=== PATIENT | male | born 1965 | race Caucasian/White ===

== ENCOUNTER 2017-07-24 06:54 | Day surgery (SDC) | payer OTHER ==
[~2017-07-24 06:54] MED LIST: Lactated Ringers 1,000 ML IV SCH
[2017-07-24] MEDS ORDERED: Propofol 200 MG/20 ML SDV IV ONE (08:00)
[2017-07-24] MEDS ORDERED: Midazolam 1 MG/ML 2 ML SDV IV ONE (08:00)
--- NOTE | 2017-07-24 08:44 | PCM.OPNOTE ---
- General Post-Op/Procedure Note Date of Surgery/Procedure: 07/24/17 Operative Procedure(s): c scope with bx Findings: sigmoid diverticulosis transverse colon polyp descending colon polyp x3 rectal polyp x2 Pre Op Diagnosis: hx of diverticulosis Post-Op Diagnosis: sigmoid diverticulosis. transverse colon polyp. descending colon polyp x3. rectal polyp x2 Anesthesia Technique: MAC Primary Surgeon: Guru Crawford Anesthesia Provider: Philip Correa Pathology: transverse colon polyp descending colon polyp x3 rectal polyp x2 Complications: None Condition: Good Free Text/Narrative:: see dictation
--- NOTE | 2017-07-24 13:00 | OR ---
DATE OF OPERATION: 07/24/2017 SURGEON: Guru Crawford MD PROCEDURE PERFORMED: Colonoscope with cold forceps biopsy. PREOPERATIVE DIAGNOSIS: History of diverticulosis. POSTOPERATIVE DIAGNOSIS: Transverse colon polyp, descending colon polyp x3, rectal polyp x2, and sigmoid diverticulosis. INDICATIONS FOR PROCEDURE: This is a 52-year-old white male who is referred with a recent attack of diverticulosis. He was offered and accepted a colonoscopy as part of a workup as he has never had a colonoscopy in the past. DESCRIPTION OF PROCEDURE: After an excellent IV sedation was administered, digital rectal exam was performed. No marked abnormality was noted. The flexible colonoscope was inserted and advanced without difficulty to the cecum. The prep was excellent. The following findings were noted. Ascending colon, unremarkable. Transverse colon; at the proximal transverse colon, a small polyp biopsied with cold biopsy forceps and sent for permanent. Descending colon, three small polypoid lesions, biopsied with cold biopsy forceps and sent for permanent. Sigmoid, occasional diverticulosis. Rectum, just above the anal verge, two polyps biopsied and submitted in one container. The colon was deflated as the scope was removed. The patient tolerated the procedure well, and was taken to recovery room in good condition. /[id number] /NADYA
== END 2017-07-24 09:51 | disposition home or self-care (01) ==
LOC: FB.SDS 06:54
PROVIDERS: ATTEND Surgery
DX: D12.3 Benign neoplasm of transverse colon (principal); D12.4 Benign neoplasm of descending colon; K62.1 Rectal polyp; K57.30 Diverticulosis of large intestine without perforation or abscess without bleeding; Z79.899 Other long term (current) drug therapy
CPT/HCPCS: 45380; 88305; J2250; J2704; J7120

== ENCOUNTER 2018-05-20 17:07 | Inpatient (IN) | payer OTHER ==
[2018-05-20] MEDS ORDERED: Sodium Chloride 0.9% 10 ML Syringe FLUSH PRN (17:30)
[2018-05-20] MEDS ORDERED: Ciprofloxacin in D5W 400 MG in Premix Bag 1 BAG IV SCH ×2 (17:30)
[2018-05-20] MEDS ORDERED: Ketorolac 30 MG/ML SDV IM PRN (17:30)
[2018-05-20] MEDS: Sodium Chloride 0.9% 1,000 ML IV SCH (19:00)
[2018-05-20] MEDS: metroNIDAZOLE/Normal Saline 500 MG in Premix Bag 1 BAG IV SCH (19:31)
[2018-05-20] MEDS: Piperacillin/Tazobactam 3.375 GM in Sodium Chloride 0.9% 50 ML IV SCH (20:36)
--- NOTE | 2018-05-21 01:27 | HP ---
ADMISSION DATE: 05/20/2018 CHIEF COMPLAINT: Abdominal pain. HISTORY OF PRESENT ILLNESS: Lambert is a 53-year-old estes from [facility] with a history of prior episodes of diverticulitis treated as an outpatient. He states that he has been having abdominal pain for approximately 10 days by the time he went into the clinic on May [address] Jonathan Huizar. At that time, he was started on Cipro, which he has continued for the past 5 days. His symptoms also included low-grade fever, but chills and sweats. No high fever, and pain in the lower abdomen that radiated from the left lower quadrant to the suprapubic area. He states that today he has felt improved, but he had a CT scan of his abdomen today, which showed sigmoid diverticulitis with localized perforation. For that reason, Dr. Huizar asked him to come to the hospital where he is now examined. He has been eating regularly and he ate essentially normal meals yesterday. Today, he did not eat because of his busy schedule. PAST MEDICAL HISTORY: No inpatient treatments for diverticulitis. He has had colonoscopy within the last couple of years, which showed a few diverticula. He is also status post ACL repair on the right knee and arthroscopic surgery on the left knee. He has no other medical problems, but has had episodes of back pain with sciatica related to an old pelvis fracture several years ago. MEDICATIONS: Cipro 400 mg b.i.d. ALLERGIES: None. HABITS: Nonsmoker. Occasional alcohol. Two caffeinated sodas per day. FAMILY AND SOCIAL HISTORY: The patient states his father had prostate cancer. He is after being for 17 years. He has 3 children, the oldest in college. He [place] [facility] and lives [place] the farm by himself. REVIEW OF SYSTEMS: GENERAL: No seizure, syncope, or recent significant weight change. SKIN: Negative for rash. HEENT: No recent changes in hearing or vision. No sore throat or URI. No cough or purulent sputum. CARDIAC: No chest pain or palpitations. GASTROINTESTINAL: No upper abdominal pain, nausea, vomiting, or diarrhea. GENITOURINARY: He has had a pressure sensation on the bladder, but no hematuria or dysuria. MUSCULOSKELETAL: He does report he has had intermittent low back pain with sciatica and he describes anterior pelvic bone and pubic bone area pain associated with this and confusing him as to the origin of his lower abdominal pubic area pain. He also has had recent joint pain since going on the Cipro, that includes stiffness and soreness in his neck that progressed to headache, and some achiness in his shoulders and hips. He says when the Cipro seems to wear off around 10-12 hours the headache goes away and it starts up again an hour after the Cipro along with his other joint pains. LABORATORY DATA: White count 4400, hemoglobin 14.2. Electrolytes normal. Creatinine 1.1. AST 65, ALT 121, alkaline phosphatase 143. CRP 15.7. DIAGNOSTIC DATA: CT scan of the abdomen shows sigmoid diverticulitis with localized perforation and no intraabdominal free air. ASSESSMENT: 1. Acute diverticulitis with microperforation. 2. History of previous diverticulitis and diverticulosis. 3. Neck pain and arthralgias secondary to Cipro. 4. History of back pain and sciatica and symphysis pubis area pain post old pubic fracture. 5. Elevated liver enzymes, cause unclear. PLAN: Because of his side effects of Cipro, we will discontinue that and start him on Zosyn 3.375 g every 6 hours IV. He is also started on metronidazole IV, which we may be able to stop after the first couple of doses. I will also consult with Dr. Crawford for surgical evaluation. Allow him to have a full liquid diet for tonight. I anticipate approximately a 48-72 hour hospital stay. /[id number] АННА/NADYA
[2018-05-21] MEDS: metroNIDAZOLE/Normal Saline 500 MG in Premix Bag 1 BAG IV SCH ×2 (02:23→10:44)
[2018-05-21] MEDS: Piperacillin/Tazobactam 3.375 GM in Sodium Chloride 0.9% 50 ML IV SCH ×4 (03:28→19:58)
[2018-05-21] MEDS: Sodium Chloride 0.9% 1,000 ML IV SCH ×3 (03:33→22:55)
--- NOTE | 2018-05-21 08:50 | PCM.CONS ---
H&P History of Present Illness - General Date of Service: 05/21/18 Admit Problem/Dx: Admission Diagnosis/Problem Admission Diagnosis/Problem Diverticulitis Source of Information: Patient, Other - History of Present Illness Initial Comments - Free Text/Narative: 53 yo wm with a hx of diverticulitis in the past. He developed some abd pain last week. This was a dull ache in the lower abd. He states it felt like a bladder infection. He was seen in the clinic and apparently started on Cipro. His sx persisted but he did feel better on Saturday. A Ct scan had been recommended last week and he had this done yesterday. A microperforation was noted. He was admitted and started on IV antibiotics with broader coverage. He denies any fever or chills. Does note that his bowel movements are slightly decreased. He feels better today. - Related Data Allergies/Adverse Reactions: Allergies Allergy/AdvReac Type Severity Reaction Status Date / Time ciprofloxacin AdvReac Headache Verified 05/20/18 23:47 Home Medications: Home Meds Ciprofloxacin HCl [Cipro] 500 mg PO BID 05/20/18 [History] Past Medical History - Past Health History Medical/Surgical History: Denies Medical/Surgical History HEENT History: Reports: None Cardiovascular History: Reports: None Respiratory History: Reports: None Gastrointestinal History: Reports: Diverticulosis, Other (See Below) Other Gastrointestinal History: DIVERTICULITIS Genitourinary History: Reports: None CREDIT PORTFOLIO MANAGER History: Reports: None Musculoskeletal History: Reports: Fracture Neurological History: Reports: Concussion Psychiatric History: Reports: None Endocrine/Metabolic History: Reports: Obesity/BMI 30+ Hematologic History: Reports: None Immunologic History: Reports: None Oncologic (Cancer) History: Reports: None Dermatologic History: Reports: None - Past Surgical History HEENT Surgical History: Reports: Radial Keratotomy Cardiovascular Surgical History: Reports: None Respiratory Surgical History: Reports: None GI Surgical History: Reports: Colonoscopy Other GI Surgeries/Procedures: colonoscopy in 2018 Male Surgical History: Reports: None, Vasectomy Endocrine Surgical History: Reports: None Neurological Surgical History: Reports: None Musculoskeletal Surgical History: Reports: Arthroscopic Knee Other Musculoskeletal Surgeries/Procedures:: KNEE SURGERY both knees, ACL repair Oncologic Surgical History: Reports: None Dermatological Surgical History: Reports: None Social & Family History - Family History Other Family History: dad prostate CA, then pancreatic, but from heart disease - Tobacco Use Smoking Status *Q: Never Smoker Second Hand Smoke Exposure: No - Caffeine Use Caffeine Use: Reports: Soda - Alcohol Use Number of Drinks Per Day: 1 - Recreational Drug Use Recreational Drug Use: No H&P Review of Systems - Review of Systems: Review Of Systems: See Below General: Reports: No Symptoms. Denies: Fever Pulmonary: Reports: No Symptoms Cardiovascular: Reports: No Symptoms Gastrointestinal: Reports: Abdominal Pain Exam - Exam Exam: See Below - Vital Signs Vital Signs: Last Vital Signs Temp 97.8 F 05/21/18 00:00 Pulse 67 05/21/18 00:00 Resp 16 05/21/18 00:00 BP 112/76 05/21/18 00:00 Pulse Ox 95 05/21/18 00:00 Weight: 123.122 kg - Exam General: Alert, Oriented, Cooperative. No: Mild Distress Lungs: Clear to Auscultation, Normal Respiratory Effort Cardiovascular: Regular Rate, Regular Rhythm GI/Abdominal Exam: Normal Bowel Sounds, Soft, Non-Tender - Patient Data Lab Results Last 24 hrs: Laboratory Results - last 24 hr 05/20/18 05/20/18 05/20/18 Range/Units 17:50 17:50 17:50 WBC 4.4 L (4.5-12.0) X10-3/uL RBC 4.68 (4.30-5.75) x10(6)uL Hgb 14.2 (11.5-15.5) g/dL Hct 41.7 (30.0-51.3) % MCV 89.0 (80-96) fL MCH 30.3 (27.7-33.6) pg MCHC 34.0 (32.2-35.4) g/dL RDW 11.6 (11.5-15.5) % Plt Count 288 (125-369) X10(3)uL MPV 7.9 (7.4-10.4) fL Neut % (Auto) 59.7 (46-82) % Lymph % (Auto) 26.9 (13-37) % Roberts % (Auto) 9.2 (4-12) % Eos % (Auto) 4 (1.0-5.0) % Baso % (Auto) 0 (0-2) % Neut # (Auto) 2.6 (1.6-8.3) # Lymph # (Auto) 1.2 (0.6-5.0) # Roberts # (Auto) 0.4 (0.0-1.3) # Eos # (Auto) 0.2 (0.0-0.8) # Baso # (Auto) 0.0 (0.0-0.2) # Sodium 138 (135-145) mmol/L Potassium 4.3 (3.5-5.3) mmol/L Chloride 101 (100-110) mmol/L Carbon Dioxide 31 (21-32) mmol/L BUN 22 H (7-18) mg/dL Creatinine 1.1 (0.70-1.30) mg/dL Est Cr Clr Drug Dosing 91.33 mL/min Estimated GFR (MDRD) > 60 (>60) BUN/Creatinine Ratio 20.0 (9-20) Glucose 99 (80-116) mg/dL Calcium 8.7 (8.6-10.2) mg/dL Total Bilirubin 0.6 (0.1-1.3) mg/dL AST 65 H (5-25) IU/L ALT 121 H (12-36) U/L Alkaline Phosphatase 143 H (56-112) IU/L Lactate Dehydrogenase 150 (85-227) U/L C-Reactive Protein 15.7 H* (0.5-0.9) mg/dL Total Protein 7.6 (6.0-8.0) g/dL Albumin 3.0 L (3.5-5.2) g/dL Globulin 4.6 g/dL Albumin/Globulin Ratio 0.7 05/21/18 05/21/18 Range/Units 06:35 06:35 WBC 5.8 (4.5-12.0) X10-3/uL RBC 4.43 (4.30-5.75) x10(6)uL Hgb 13.5 (11.5-15.5) g/dL Hct 39.8 (30.0-51.3) % MCV 89.9 (80-96) fL MCH 30.5 (27.7-33.6) pg MCHC 33.9 (32.2-35.4) g/dL RDW 12.1 (11.5-15.5) % Plt Count 294 (125-369) X10(3)uL MPV 8.1 (7.4-10.4) fL Neut % (Auto) 57.5 (46-82) % Lymph % (Auto) 29.9 (13-37) % Roberts % (Auto) 8.6 (4-12) % Eos % (Auto) 4 (1.0-5.0) % Baso % (Auto) 0 (0-2) % Neut # (Auto) 3.4 (1.6-8.3) # Lymph # (Auto) 1.7 (0.6-5.0) # Roberts # (Auto) 0.5 (0.0-1.3) # Eos # (Auto) 0.2 (0.0-0.8) # Baso # (Auto) 0.0 (0.0-0.2) # Sodium 140 (135-145) mmol/L Potassium 4.5 (3.5-5.3) mmol/L Chloride 104 (100-110) mmol/L Carbon Dioxide 31 (21-32) mmol/L BUN 16 (7-18) mg/dL Creatinine 1.2 (0.70-1.30) mg/dL Est Cr Clr Drug Dosing 83.72 mL/min Estimated GFR (MDRD) > 60 (>60) BUN/Creatinine Ratio 13.3 (9-20) Glucose 95 (80-116) mg/dL Calcium 8.4 L (8.6-10.2) mg/dL Total Bilirubin 0.7 (0.1-1.3) mg/dL AST 49 H D (5-25) IU/L ALT 102 H D (12-36) U/L Alkaline Phosphatase 123 H (56-112) IU/L Lactate Dehydrogenase (85-227) U/L C-Reactive Protein (0.5-0.9) mg/dL Total Protein 6.8 (6.0-8.0) g/dL Albumin 2.6 L (3.5-5.2) g/dL Globulin 4.2 g/dL Albumin/Globulin Ratio 0.6 Result Diagrams: 05/21/18 06:35 05/21/18 06:35 Consult PN Assessment/Plan Procedures: Procedures COLONOSCOPY AND BIOPSY (07/24/17) EMERGENCY DEPT VISIT (11/05/13) TISSUE EXAM BY PATHOLOGIST (07/24/17) (1) Perforation of sigmoid colon due to diverticulitis SNOMED Code(s): 9275659875121147 Code(s): K57.20 - DVTRCLI OF LG INT W PERFORATION AND ABSCESS W/O BLEEDING Current Visit: Yes Assessment:: micro perforation Problem List Initiated/Reviewed/Updated: Yes Plan: would continue IV antibiotics for a day. if continues to feel better would switch to oral meds. (Augmentin) for an additional ten days. consideration needs to be made for an elective resection of his sigmoid colon.
--- NOTE | 2018-05-21 11:39 | PN ---
DATE SEEN: 05/21/2018 HISTORY: Lambert is a 53-year-old man who has had recurrent episodes of diverticulitis over the past couple of years. He developed abdominal pain approximately 2-1/2 weeks ago and was seen in the office by Dr. Huizar a week ago. He was started on Cipro and asked to have a CT of the abdomen. Lambert states that his symptoms only slowly got better on the Cipro, and CT showed a microperforation. He was thus admitted last night for IV antibiotics. He has been on now Zosyn and metronidazole overnight. He feels the same this morning. He is not having any fever. He still does have abdominal discomfort and describes it as a sensation of bladder pressure and bladder discomfort. PHYSICAL EXAMINATION: VITAL SIGNS: Blood pressure 112/76, pulse 67 and regular, respirations 16, temp 97.8, O2 saturation 95% on room air. SKIN: Shows no sign of rash. HEENT: Shows mouth to be dry. LUNGS: Clear. HEART: Regular. ABDOMEN: Normal bowel sounds. There is tenderness in the left lower quadrant and mild rebound tenderness in the same area on shaking of his abdomen. EXTREMITIES: Normal. ASSESSMENT: Diverticulitis with microperforation. PLAN: Continue the IV antibiotics. Anticipate switch to oral tomorrow with discharge tomorrow on Augmentin and follow up as an outpatient. /[id number] АННА/NADYA
[2018-05-22] MEDS: Piperacillin/Tazobactam 3.375 GM in Sodium Chloride 0.9% 50 ML IV SCH ×2 (01:36→08:16)
[2018-05-22] MEDS: Sodium Chloride 0.9% 1,000 ML IV SCH (07:25)
[2018-05-22 09:18] LABS: HBSAG SCREEN Negative (Negative); HEP A AB, IGM Negative (Negative); HEP B CORE AB, IGM Negative (Negative); HEP C VIRUS AB <0.1 s/co ratio (0.0-0.9)
[2018-05-22] MEDS ORDERED: Amoxicillin/Clavulanate K 875-125 MG Tab PO SCH ×2 (10:00→12:00)
--- NOTE | 2018-05-22 15:32 | DISCH ---
DISCHARGE DATE: 05/22/2018 PRIMARY FINAL DIAGNOSIS: Acute diverticulitis with microperforation and microabscess. OTHER DIAGNOSES: Generalized myalgias, headache, and joint pain secondary to ciprofloxacin. OPERATIONS: None. COMPLICATIONS: None. SUMMARY: Lambert is a 53-year-old man from [facility] who came in to the hospital because of an episode of diverticulitis. CT scan performed as an outpatient showed microperforation with microabscess. On admission, he was started on IV Zosyn and metronidazole. He received 2 doses of IV metronidazole and this was discontinued and he was kept on the Zosyn. During hospitalization, he remained afebrile. His white count was 4.4 and 5.8 and hemoglobin normal. There was mild liver enzyme elevation on admission that was declining by the next day. The patient is discharged in good condition to continue medications as follows. DISCHARGE MEDICATIONS: Augmentin 875 mg b.i.d. x1 week. DISCHARGE INSTRUCTIONS: He is asked to see Dr. Crawford in the office in 2 weeks and discuss any further investigation required for followup. Barrie mccormick /[id number] АННА/NADYA
== END 2018-05-22 09:10 | disposition home or self-care (01) | DRG 392 ==
LOC: FB.MS 17:10
PROVIDERS: ADMIT Family Medicine; ATTEND Family Medicine
DX: K57.80 Diverticulitis of intestine, part unspecified, with perforation and abscess without bleeding (principal); M25.50 Pain in unspecified joint; T36.8X5A Adverse effect of other systemic antibiotics, initial encounter; M54.2 Cervicalgia; R74.8 Abnormal levels of other serum enzymes; E66.9 Obesity, unspecified
CPT/HCPCS: 36415; 80053; 80074; 83615; 85025; 86140; J2543; J3490; J7030; J7050

== ENCOUNTER 2021-08-28 09:07 | Emergency (ER) | payer OTHER ==
[2021-08-28] MEDS ORDERED: Sodium Chloride 0.9% 10 ML Syringe FLUSH PRN (10:32)
[2021-08-28] MEDS ORDERED: Sodium Chloride 0.9% 1,000 ML IV ONE (10:32)
[2021-08-28 11:38] LABS: CORONAVIRUS COVID-19 NAA POSITIVE (NEGATIVE)
[2021-08-28] MEDS ORDERED: Dexamethasone 4 MG/ML SDV IVPUSH ONE (13:01)
[2021-08-28] MEDS ORDERED: cefTRIAXone 1 GM Vial IVPUSH ONE (13:02)
[2021-08-28] MEDS ORDERED: Ondansetron 4 MG/2 ML SDV IVPUSH ONE (13:02)
== END 2021-08-28 13:30 | disposition home or self-care (01) ==
LOC: FB.ED 09:07
DX: U07.1 COVID-19 (principal); J12.82 Pneumonia due to coronavirus disease 2019; E86.0 Dehydration; E66.9 Obesity, unspecified; Z68.36 Body mass index [BMI] 36.0-36.9, adult; Z88.1 Allergy status to other antibiotic agents
CPT/HCPCS: 0240U; 36415; 71046; 80053; 83735; 85025; 96374; 96375; 99283; 99284-25; J0696; J1100; J2405; J7030